=== PATIENT | male | born 1975 | race Caucasian/White ===

== ENCOUNTER 2022-07-18 05:03 | Emergency (ER) | payer BC ==
[~2022-07-18] VITALS: Ht 175.2 cm; Wt 117.9 kg
[~2022-07-18 05:03] MED LIST: ADVAIR 500/501 E1 INH; FLOMAX0.4 MG PO; LIPITOR; MEDROL DOSEPAK4 MG PO; PERCOCET 325 MG1 TA2 PO; VICODIN ES 7501 TAB PO
[2022-07-18 05:46] LABS: BILIRUBIN Negative (Negative); BLOOD 2+ (Negative); CLARITY Clear (Clear); COLOR Yellow (Yellow); GLUCOSE Negative (Negative); KETONE Negative (Negative); LEUKO ESTERASE Negative (Negative); NITRITE Negative (Negative); PH 6.5 (4.5-8.0); UROBILINOGEN 0.2 E.U./dl (0.0-1.0)
[2022-07-18 06:00] LABS: BASO # 0.1 10*3/uL (0.0-0.1); BASO % 0.9 % (0.0-1.0); EOS # 1.1 10*3/uL (0.0-0.4); EOS % 11.9 % (1.0-4.0); LYMPH # 2.2 10*3/uL (1.3-4.4); LYMPH % 23.4 % (27.0-41.0); MEAN CELL VOLUME 95.7 fl (80.0-94.0); MEAN CORPUSCULAR HGB CONC 33.4 g/dl (33.0-37.0); MEAN PLATELET VOLUME 8.9 fl (9.6-12.3); MONO # 0.8 10*3/uL (0.1-1.0); MONO % 8.5 % (3.0-9.0); NEUT % 53.9 % (47.0-73.0); PLATELET COUNT AUTOMATED 273 10*3/uL (130-400); RED CELL DISTRI WIDTH 12.4 % (0-14.5); WHITE BLOOD COUNT 9.3 10*3/uL (4.8-10.8)
[2022-07-18 06:03] LABS: ALKALINE PHOSPHATASE 100 U/L (46-116); BUN 16 mg/dl (9-23); CHLORIDE 105 mmol/L (98-107); CREATININE 0.77 mg/dL (0.70-1.30); LIPASE 92 U/L (12-53); POTASSIUM 3.8 mmol/L (3.4-5.1); SGPT/ALT 27 U/L (10-49); SODIUM 139 mmol/L (136-145)
[2022-07-18 06:04] LABS: TOTAL PROTEIN 6.6 gm/dL (6.0-8.0)
[2022-07-18 06:11] LABS: RBC 31-40 rbc/hpf (0-2)
[2022-07-18 06:12] LABS: BACTERIA 1+; WBC 0-2 wbc/hpf (0-5)
[2022-07-18] MEDS ORDERED: CIPRO500 MG PO (06:48)
[2022-07-18] MEDS ORDERED: KETOROLAC10 MG PO (06:48)
== END 2022-07-18 07:16 | disposition home or self-care (01) ==
LOC: ED 05:03
PROVIDERS: Emergency Medicine
DX: M54.50 Low back pain, unspecified (principal); R10.2 Pelvic and perineal pain; R31.9 Hematuria, unspecified; Z79.899 Other long term (current) drug therapy; Z79.891 Long term (current) use of opiate analgesic

== ENCOUNTER 2023-11-14 18:57 | Emergency (ER) | payer BC ==
[~2023-11-14 18:57] MED LIST changes: +CIPRO500 MG PO; +KETOROLAC10 MG PO
[2023-11-14] MEDS ORDERED: GLUMETZA500 MG PO (19:20)
[2023-11-14] MEDS ORDERED: LISINOPRIL10 M1 PO (19:21)
[2023-11-14] MEDS ORDERED: HYDR25T PO (19:21)
[2023-11-14] MEDS ORDERED: Doxycycline Hyclate 100 MG CAP PO ONE (19:35)
[2023-11-14] MEDS ORDERED: Lidocaine Hydrochloride 2% 10 ML AMP SC ONE (19:35)
[2023-11-14] MEDS ORDERED: LIDOCAINE HCL/EPINEPHRINE 50 ML VIAL ONE (19:49)
[2023-11-14] MEDS ORDERED: VIBRAMYCIN100 MG PO (20:09)
== END 2023-11-14 20:20 | disposition home or self-care (01) ==
LOC: ED 18:57
DX: L02.31 Cutaneous abscess of buttock (principal); Z88.6 Allergy status to analgesic agent; Z88.8 Allergy status to other drugs, medicaments and biological substances; Z79.899 Other long term (current) drug therapy